=== PATIENT | male | born 1945 | race Hispanic/Latino ===

== ENCOUNTER 2016-08-11 19:18 | Inpatient (IN) | payer MEDICARE, MEDICAID ==
[2016-08-11 20:08] LABS: BASO # 0.1 K/uL (0.0-0.2); BASO % 0.7 % (0.0-2.0); EOS % 0.1 % (0.0-4.0); HEMATOCRIT 43.8 % (35.0-51.0); LYMPH # 1.6 K/uL (1.0-4.3); LYMPH % 15.5 % (20.0-40.0); MEAN CELL VOLUME 88.7 fL (80.0-94.0); MEAN CORPUSCULAR HEMOGLOBIN 29.4 pg (27.0-31.0); MEAN CORPUSCULAR HGB CONC 33.2 g/dL (33.0-37.0); MONO # 0.8 K/uL (0.0-0.8); MONO % 7.7 % (0.0-10.0); NRBC % 0.1 % (0.0-2.0); RED CELL DISTRIBUTION WIDTH 14.9 % (11.5-14.5); WHITE BLOOD COUNT 10.4 K/uL (4.8-10.8)
[2016-08-11 20:10] LABS: CHLORIDE 101 mmol/L (98-107); SODIUM 141 mmol/L (132-148)
[2016-08-11 20:11] LABS: POTASSIUM 3.9 mmol/L (3.6-5.2)
[2016-08-11 20:12] LABS: GFR AFRICAN-AMERICAN > 60
[2016-08-11 20:13] LABS: ALB/GLOB RATIO 1.7 (1.0-2.1); ALKALINE PHOSPHATASE 66 U/L (38-126); ALT/SGPT 28 U/L (21-72); AST/SGOT 30 U/L (17-59); BILIRUBIN,TOTAL 0.6 mg/dL (0.2-1.3); BLOOD UREA NITROGEN 29 mg/dL (9-20); CALCIUM 9.4 mg/dl (8.6-10.4); CARBON DIOXIDE 28 mmol/L (22-30); GLUCOSE,RANDOM 82 mg/dL (75-110); TOTAL PROTEIN 8.8 g/dL (6.3-8.3)
[2016-08-11 20:14] LABS: ALCOHOL SERUM < 10 mg/dl (0-10)
[2016-08-11 20:18] LABS: RBC URINE 1 /hpf (0-3); URINE BACTERIA RARE (<OCC); URINE BILIRUBIN NEGATIVE (NEGATIVE); URINE BLOOD NEGATIVE (NEGATIVE); URINE COLOR Yellow (YELLOW); URINE GLUCOSE (UA) NORMAL (Normal); URINE KETONE NEGATIVE (NEGATIVE); URINE LEUKOCYTE ESTERASE NEG Leu/uL (Negative); URINE PROTEIN NEGATIVE (NEGATIVE); URINE UROBILINOGEN NORMAL mg/dL (0.2-1.0); WBC URINE < 1 /hpf (0-5)
--- NOTE | 2016-08-11 20:31 | C.PDOC ---
History Of Present Illness A 70 y/o male comes in for suicidal ideation since today. Pt denies homicidal ideation, fever, chills, nausea, vomiting, or any other complaints. Time Seen by Provider: 08/11/16 20:15 Chief Complaint (Nursing): Psychiatric Evaluation History Per: Patient History/Exam Limitations: no limitations Onset/Duration Of Symptoms: Hrs Current Symptoms Are (Timing): Still Present Suicide/Self Injury Attempted (Context): None Modifying Factor(s): None Severity: Mild Associated Symptoms: Suicidal Thoughts. denies: Suicidal Plan Involuntary Hold By: None Recent travel outside of the [place]: No Additional History Per: Patient Past Medical History Reviewed: Historical Data, Nursing Documentation, Vital Signs Vital Signs: Last Vital Signs Temp 98.3 F 08/11/16 19:47 Pulse 55 L 08/11/16 19:47 Resp 20 08/11/16 19:47 BP 161/99 H 08/11/16 19:47 Pulse Ox 100 08/11/16 20:32 - Medical History PMH: Anxiety, Depression, Post Traumatic Stress Disorder Family History: States: Unknown Family Hx - Social History Hx Alcohol Use: Yes Hx Substance Use: Yes Review Of Systems Except As Marked, All Systems Reviewed And Found Negative. Constitutional: Negative for: Fever, Chills Gastrointestinal: Negative for: Nausea, Vomiting Psych: Positive for: Suicidal ideation. Negative for: Other (Homicidal ideation ) Physical Exam - Physical Exam Appears: Non-toxic, No Acute Distress Skin: Warm, Dry Head: Atraumatic, Normacephalic Eye(s): bilateral: Normal Inspection Chest: Symmetrical Cardiovascular: Rhythm Regular, No Murmur Respiratory: Normal Breath Sounds, No Accessory Muscle Use, No Rales, No Rhonchi , No Wheezing Gastrointestinal/Abdominal: Soft, No Tenderness Neurological/Psych: Oriented x3, Normal Speech, Other (No focal deficit) Gait: Steady ED Course And Treatment - Laboratory Results Result Diagrams: 08/11/16 19:56 08/11/16 19:56 O2 Sat by Pulse Oximetry: 100 (RA) Pulse Ox Interpretation: Normal Medical Decision Making Medical Decision Making: Impression: 70 y/o male c/o suicidal ideation since today Plans: blood labs, reassess Disposition Discussed With : Mariah Rudolph Doctor Will See Patient In The: Hospital Counseled Patient/Family Regarding: Diagnosis - Disposition Disposition: HOSPITALIZED Disposition Time: 21:44 Condition: STABLE - POA Present On Arrival: None - Clinical Impression Clinical Impression: Depression - Scribe Statement The provider has reviewed the documentation as recorded by the Scribe Astrid julien All medical record entries made by the Scribe were at my direction and personally dictated by me. I have reviewed the chart and agree that the record accurately reflects my personal performance of the history, physical exam, medical decision making, and the department course for this patient. I have also personally directed, reviewed, and agree with the discharge instructions and disposition.
[2016-08-11 23:01] VITALS: O2SAT 98
[2016-08-12 07:24] VITALS: RESP 20
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
--- NOTE | 2016-08-12 18:20 | RAD ---
HISTORY: a fib COMPARISON: No prior. TECHNIQUE: Chest PA and lateral FINDINGS: LUNGS: Hyperinflation, manifestations of COPD. No active pulmonary disease. PLEURA: No significant pleural effusion identified. No pneumothorax apparent. CARDIOVASCULAR: Normal. OSSEOUS STRUCTURES: No significant abnormalities. Posttraumatic postsurgical changes incompletely visualized right humerus/shoulder VISUALIZED UPPER ABDOMEN: Normal. OTHER FINDINGS: None. IMPRESSION: No active disease.
[2016-08-13 08:45] VITALS: BP 132/52; PULSE 72; TEMP 97.5
[2016-08-13 08:58] LABS: BASO # 0.1 K/uL (0.0-0.2); BASO % 1.2 % (0.0-2.0); EOS # 0.3 K/uL (0.0-0.7); EOS % 3.9 % (0.0-4.0); HEMATOCRIT 43.1 % (35.0-51.0); LYMPH # 1.4 K/uL (1.0-4.3); LYMPH % 22.3 % (20.0-40.0); MEAN CELL VOLUME 89.2 fL (80.0-94.0); MEAN CORPUSCULAR HEMOGLOBIN 29.3 pg (27.0-31.0); MEAN CORPUSCULAR HGB CONC 32.8 g/dL (33.0-37.0); MEAN PLATELET VOLUME 8.9 fL (7.2-11.7); MONO # 0.6 K/uL (0.0-0.8); MONO % 9.2 % (0.0-10.0); NRBC % 0.1 % (0.0-2.0); RED CELL DISTRIBUTION WIDTH 14.7 % (11.5-14.5); WHITE BLOOD COUNT 6.5 K/uL (4.8-10.8)
[2016-08-13 09:07] LABS: CHLORIDE 98 mmol/L (98-107); POTASSIUM 3.9 mmol/L (3.6-5.2); SODIUM 139 mmol/L (132-148)
[2016-08-13 09:09] LABS: ALB/GLOB RATIO 1.3 (1.0-2.1); ALKALINE PHOSPHATASE 54 U/L (38-126); AST/SGOT 22 U/L (17-59); BILIRUBIN,TOTAL 0.8 mg/dL (0.2-1.3); BLOOD UREA NITROGEN 27 mg/dL (9-20); CARBON DIOXIDE 30 mmol/L (22-30); CHOLESTEROL 233 mg/dL (0-199); GFR AFRICAN-AMERICAN > 60; TOTAL PROTEIN 7.5 g/dL (6.3-8.3)
[2016-08-13 09:10] LABS: ALT/SGPT 17 U/L (21-72); CALCIUM 8.6 mg/dl (8.6-10.4); GLUCOSE,RANDOM 103 mg/dL (75-110); MAGNESIUM 2.3 mg/dL (1.6-2.3); PHOSPHOROUS 3.2 mg/dL (2.5-4.5)
[2016-08-13 09:40] LABS: THYROID STIMULATING HORMONE 5.92 mIU/L (0.46-4.68)
--- NOTE | 2016-08-13 16:34 | PCM.PYCHPN ---
Psychiatric Progress Note - Psychiatric Progress Note Patient seen today, length of contact: 15 minutes Patient Chief Complaint: I don't want to take any other medication except Cymbalta. Problems Identified/Issues Discussed: Patient seen. Chart reviewed. Case discussed with the staff. Issues related to illness and treatment were discussed with the patient. Reported his not taking medication as he doesn't want to take any medication except Cymbalta. Patient was taking Cymbalta in the past with good response. Patient also reported he has eating disorder problem. Patient reported hitting were very less frequently to control his weight. In the beginning patient reported using laxity of and also self-induced vomiting to control weight later patient denied. Patient wanted to leave [facility] but later signed 48 hour notice for discharge. At the time of evaluation, patient was awake alert oriented 3, had no delusions, no auditory or visual hallucinations, no suicidal ideations or homicidal ideations. Medical Problems: HTN, hypothyroidism, a fib Diagnostic Results: Reviewed DSM 5 Symptoms Update: Some improvement Medication Change: Yes (Added Cymbalta) Medical Record Reviewed: Yes Consults ordered or reviewed: Reviewed Mental Status Examination - Cognitive Function Orientation: Person, Place, Situation, Time Memory: Intact Attention: WNL Concentration: WNL Association: WN Fund of Knowledge: [facility] Decription of patient's judgement and insights: Fair - Mood Mood: Depressed - Affect Affect: Depressed - Speech Speech: Appropriate - Formal Thought Process Formal Thought Process: No Impairment, Other (forgetful) Psychotic Thoughts and Behaviors: None - Suicidal Ideation Suicidal Ideation: No - Homicidal Ideation Homicidal Ideation: No Goal/Treatment Plan - Goal/Treatment Plan Need for Continued Stay: Remain at risks for inpatient hospitalization, Discharge may exacerbated symptoms, Severe functional impairment Progress Toward Problem(s) and Goals/Treatment Plan: Patient education Supportive therapy We'll start Cymbalta 30 mg daily Continue rest of the treatment as before - Smoking Cessation Smoking Cessation Initiated: No
--- NOTE | 2016-08-13 19:13 | CP.PCM.PN ---
<Jose Carlos Abel - Last Filed: 08/13/16 18:57> Subjective - Date & Time of Evaluation Date of Evaluation: 08/13/16 Time of Evaluation: 16:00 - Subjective Subjective: Medicine Note- Hospitalist Service Patient was seen and examined at bedside. Patient reports no acute complaints at this time. No events overnight, per nursing. Objective - Vital Signs/Intake and Output Vital Signs (last 24 hours): Temp Pulse Resp BP Pulse Ox 97.5 F L 72 20 132/52 L 98 08/13/16 08:44 08/13/16 08:44 08/13/16 08:44 08/13/16 08:44 08/11/16 23:00 - Medications Medications: Current Medications Acetaminophen (Tylenol 325mg Tab) 650 mg PO Q6 PRN PRN Reason: Agitation Aspirin (Aspirin Chewable) 81 mg PO DAILY [facility] Last Admin: 08/13/16 09:19 Dose: 81 mg Clonidine HCl (Catapres) 0.1 mg PO Q6H PRN PRN Reason: blood pressure Last Admin: 08/12/16 18:24 Dose: 0.1 mg Diphenhydramine HCl (Benadryl) 50 mg PO HS PRN PRN Reason: Insomnia Last Admin: 08/12/16 21:54 Dose: 50 mg Duloxetine HCl (Cymbalta) 30 mg PO DAILY [facility] Last Admin: 08/13/16 17:41 Dose: 30 mg Gabapentin (Neurontin) 100 mg PO TID [facility] Last Admin: 08/13/16 17:41 Dose: Not Given Hydroxyzine HCl (Atarax) 50 mg PO Q6H PRN PRN Reason: Agitation Last Admin: 08/12/16 18:24 Dose: 50 mg Ibuprofen (Motrin Tab) 600 mg PO Q6H PRN PRN Reason: moderate pain Last Admin: 08/11/16 23:41 Dose: 600 mg Mirtazapine (Remeron) 15 mg PO [facility] Last Admin: 08/12/16 21:54 Dose: 15 mg Pneumococcal Polyvalent Vaccine (Pneumovax 23 Vaccine) 0.5 ml IM .ONCE ONE Stop: 08/14/16 10:31 Prazosin HCl (Minipress) 1 mg PO HS [facility] Last Admin: 08/12/16 21:54 Dose: 1 mg - Labs Labs: 08/13/16 08:53 08/13/16 08:53 - Constitutional Appears: Non-toxic, No Acute Distress - Head Exam Head Exam: ATRAUMATIC, NORMAL INSPECTION, NORMOCEPHALIC - Eye Exam Pupil Exam: NORMAL ACCOMODATION - ENT Exam ENT Exam: Mucous Membranes Moist - Respiratory Exam Respiratory Exam: Clear to Ausculation Bilateral, NORMAL BREATHING PATTERN. absent: Prolonged Expiratory Phase, Rales, Rhonchi, Wheezes - Cardiovascular Exam Cardiovascular Exam: REGULAR RHYTHM, +S1, +S2 - GI/Abdominal Exam GI & Abdominal Exam: Soft, Normal Bowel Sounds. absent: Tenderness, Diminished Bowel Sounds, Hernia, Hypoactive Bowel Sounds - Neurological Exam Neurological Exam: Alert, Awake, Oriented x3 - Psychiatric Exam Psychiatric exam: Normal Affect, Normal Mood - Skin Skin Exam: Dry, Intact, Normal Color, Warm Assessment and Plan - Assessment and Plan (Free Text) Assessment: 1. Hx of a fib EKG shows Right bundle branch block. Romis negative x3 Asa 81mg PO Daily CXR- 08/12/16- no active disease UD positive for cocaine, marijuana 2. Hx of hypothyroidism TSH- 5.92 Started on Synthroid 25mcg PO Daily Patient will need outpatient followup with a tong setter upon discharge for his right bundle branch block, as per Dr. Vasquez. Patient will also need to continue taking Aspirin 81mg PO Daily. He will need to continue Synthroid 25mcg PO Daily upon discharge as well. He is to followup with his PMD for further care. We will sign off at this time. Please re-consult as needed. <Everardo Vasquez - Last Filed: 08/14/16 07:53> Objective - Vital Signs/Intake and Output Vital Signs (last 24 hours): Temp Pulse Resp BP Pulse Ox 97.5 F L 72 20 132/52 L 98 08/13/16 08:44 08/13/16 08:44 08/13/16 08:44 08/13/16 08:44 08/11/16 23:00 - Medications Medications: Current Medications Acetaminophen (Tylenol 325mg Tab) 650 mg PO Q6 PRN PRN Reason: Agitation Aspirin (Aspirin Chewable) 81 mg PO DAILY [facility] Last Admin: 08/13/16 09:19 Dose: 81 mg Clonidine HCl (Catapres) 0.1 mg PO Q6H PRN PRN Reason: blood pressure Last Admin: 08/12/16 18:24 Dose: 0.1 mg Diphenhydramine HCl (Benadryl) 50 mg PO HS PRN PRN Reason: Insomnia Last Admin: 08/13/16 21:46 Dose: 50 mg Duloxetine HCl (Cymbalta) 30 mg PO DAILY [facility] Last Admin: 08/13/16 17:41 Dose: 30 mg Gabapentin (Neurontin) 100 mg PO TID [facility] Last Admin: 08/13/16 17:41 Dose: Not Given Hydroxyzine HCl (Atarax) 50 mg PO Q6H PRN PRN Reason: Agitation Last Admin: 08/13/16 20:39 Dose: 50 mg Ibuprofen (Motrin Tab) 600 mg PO Q6H PRN PRN Reason: moderate pain Last Admin: 08/11/16 23:41 Dose: 600 mg Levothyroxine Sodium (Synthroid) 25 mcg PO DAILY@0630 [facility] Last Admin: 08/14/16 06:44 Dose: Not Given Mirtazapine (Remeron) 15 mg PO HS [facility] Last Admin: 08/13/16 23:14 Dose: Not Given Pneumococcal Polyvalent Vaccine (Pneumovax 23 Vaccine) 0.5 ml IM .ONCE ONE Stop: 08/14/16 10:31 Prazosin HCl (Minipress) 1 mg PO HS [facility] Last Admin: 08/13/16 21:47 Dose: 1 mg - Labs Labs: 08/13/16 08:53 08/13/16 08:53 Attending/Attestation - Attestation I have personally seen and examined this patient.: Yes I have fully participated in the care of the patient.: Yes I have reviewed all pertinent clinical information, including history, physical exam and plan: Yes Notes (Text): Medical Hospitalist: Patient was seen and examined by me. Agree with the above note by the resident. Patient had 12 lead EKG that was stable. There is a RBBB, he reports history of afib however my concern is compliance and I would not start things like coumadin or xarelto for now. For now just ASA 81. He will eventually need out patient follow up with cardiology thank you Everardo Vasquez
[2016-08-14] MEDS ORDERED: Levothyroxine 25 MCG TAB PO SCH (06:30)
[2016-08-14] MEDS ORDERED: Pneumococcal 23-Valent Vaccine IM ONE (10:30)
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
--- NOTE | 2016-09-01 19:05 | CARD ---
APPROVED REPORT EKG Measurement Heart [id number] <Conclusion> Normal sinus rhythm Right bundle branch block Abnormal ECG
== END 2016-08-14 13:32 | disposition home or self-care (01) | DRG 885 ==
LOC: C.ER 19:18 → C.5E 21:45
PROVIDERS: ADMIT Psychiatry & Neurology Psychiatry; ATTEND Psychiatry & Neurology Psychiatry
PROC: GZHZZZZ Group Psychotherapy (ICD-10-PCS; principal; 2016-08-11)
PROC: GZ58ZZZ Individual Psychotherapy, Cognitive-Behavioral (ICD-10-PCS; 2016-08-11)
PROC: GZ56ZZZ Individual Psychotherapy, Supportive (ICD-10-PCS; 2016-08-11)
DX: F31.4 Bipolar disorder, current episode depressed, severe, without psychotic features (principal); F03.90 Unspecified dementia, unspecified severity, without behavioral disturbance, psychotic disturbance, mood disturbance, and anxiety; I48.91 Unspecified atrial fibrillation; I10 Essential (primary) hypertension; F41.9 Anxiety disorder, unspecified; F43.10 Post-traumatic stress disorder, unspecified; E78.00 Pure hypercholesterolemia, unspecified; E05.90 Thyrotoxicosis, unspecified without thyrotoxic crisis or storm; F14.90 Cocaine use, unspecified, uncomplicated; F17.210 Nicotine dependence, cigarettes, uncomplicated; F12.90 Cannabis use, unspecified, uncomplicated; Z91.5 Personal history of self-harm; G47.00 Insomnia, unspecified; I45.10 Unspecified right bundle-branch block